=== PATIENT | male | born 1965 | race Caucasian/White ===

== ENCOUNTER 2021-04-02 18:15 | Emergency (ER) | payer MEDICAID ==
[~2021-04-02] VITALS: Ht 172.7 cm; Wt 115.7 kg
[2021-04-02 18:21] VITALS: BP 150/99
--- NOTE | 2021-04-02 18:29 | NUR ---
Patient ambulated with steady gait to bed 6.
--- NOTE | 2021-04-02 18:45 | NUR ---
UA and blood sample collected, walked to lab and handed to CPT Schuyler.
[2021-04-02 18:50] LABS: BASOPHILS % (AUTO) 0.3 % (0.0-2.0); EOSINOPHILS # (AUTO) 0.1 K/uL (0-0.4); EOSINOPHILS % (AUTO) 0.8 % (0.0-4.0); HEMATOCRIT 43.9 % (36-52); HEMOGLOBIN 14.2 g/dL (12.0-18.0); LYMPHOCYTES # (AUTO) 1.4 K/uL (2.0-11.5); LYMPHOCYTES % (AUTO) 12.7 % (20.5-51.1); MEAN CORPUSCULAR HEMOGLOBIN 28 pg (27-31); MEAN CORPUSCULAR HGB CONC 33 g/dL (33-37); MONOCYTES # (AUTO) 0.7 K/uL (0.8-1.0); MONOCYTES % (AUTO) 6.1 % (1.7-9.3); NEUTROPHILS # (AUTO) 9.1 K/uL (1.8-7.7); NEUTROPHILS % (AUTO) 80.1 % (42.2-75.2); PLATELET COUNT (AUTO) 288 K/uL (140-450); RED CELL DISTRIBUTION WIDTH 13.3 % (11.6-13.7); WHITE BLOOD COUNT (AUTO) 11.3 K/uL (4.8-10.8)
--- NOTE | 2021-04-02 18:50 | NUR ---
55 Y/O M BIB FROM HOME, C/O EPIGASTRIC PAIN /, PRESSURE/INTERMITTENT, RADIATING TO SHOULDER AND LOW BACK. PATIENT STATES N&V X 3 EPISODES TODAY. DENIES CHILLS, CP, SOB, COUGH, HEMATURIA, DYSURIA. DENIES MEDICATIONS PRIOR TO ARRIVAL. VSS; RESPIRATIONS EVEN/UNLABORED. UA COLLECTED. BED LOCKED IN LOWEST POSITION, SIDE RAILS X 1, CALL LIGHT IN REACH. PMH: DENIES NKA MED: DENIES
[2021-04-02 19:05] LABS: ALBUMIN 4.1 g/dL (3.4-5.0); ANION GAP 12.5 (8-16); CARBON DIOXIDE 28.9 mmol/L (21-32); CREATININE 0.8 mg/dL (0.6-1.3); POTASSIUM 3.4 mmol/L (3.5-5.1); TOTAL BILIRUBIN 0.3 mg/dL (0.0-1.0)
--- NOTE | 2021-04-02 19:11 | NUR ---
Report and transfer of care endorsed to MARIA ELENA Bailey.
--- NOTE | 2021-04-02 19:11 | NUR ---
RECEIVE REPORT FROM KORY ARREDONDO FOR CONTINUITY OF CARE
[2021-04-02] MEDS ORDERED: FAMOTIDINE 20 MG/2 ML VIAL IVP ONE (19:15)
[2021-04-02] MEDS ORDERED: ALUMINUM HYD/MAG/SIMETHICONE 30 ML UDC PO ONE (19:15)
[2021-04-02] MEDS ORDERED: OMEP20TC10 PO (20:49)
[2021-04-02] MEDS ORDERED: ALUM355S59 PO (20:49)
[2021-04-02 21:22] VITALS: BP 153/63
--- NOTE | 2021-04-02 21:22 | NUR ---
Patient discharged with v/s stable. Written and verbal after care instructions given and explained. Patient alert, oriented and verbalized understanding of instructions. Ambulatory with steady gait. All questions addressed prior to discharge. ID band AND IV ACCESS removed. Patient advised to follow up with PMD. Rx of MAALOX, OMEPRAZOLE given. Patient educated on indication of medication including possible reaction and side effects. Opportunity to ask questions provided and answered.
== END 2021-04-02 21:22 | disposition home or self-care (01) ==
LOC: EDSEX 18:15 → MED 18:15
DX: K29.70 Gastritis, unspecified, without bleeding (principal)
CPT/HCPCS: 36415; 71045; 80053; 83690; 84484; 85025; 93005; 96374; 99285; J3490; Q0092